=== PATIENT | male | born 1945 | race Caucasian/White ===

== ENCOUNTER 2016-06-22 19:21 | Inpatient (IN) | payer OTHER ==
[~2016-06-22] VITALS: Ht 182.9 cm; Wt 77.4 kg
[~2016-06-22 19:21] MED LIST: DOCU-30 PO; Hydrocodone Bit/Acetaminophen PO
[2016-06-22] MEDS ORDERED: ONDANSETRON 2MG/ML, 2ML ONE (19:59)
[2016-06-22] MEDS ORDERED: HYDROmorphone 1 MG/ML, 1ML ONE (19:59)
[2016-06-22] MEDS ORDERED: ONDANSETRON 2MG/ML, 2ML IVPush ONE (20:00)
[2016-06-22] MEDS ORDERED: SODIUM CHLORIDE FLUSH 10ML SYR IVF ONE (20:00)
[2016-06-22] MEDS ORDERED: HYDROmorphone 1 MG/ML, 1ML IVPush PRN (20:00)
[2016-06-22] MEDS ORDERED: SODIUM CHLORIDE 0.9%, 500ML IVBOLUS ONE (20:30)
[2016-06-22 20:33] LABS: ASPARTATE AMINO TRANSFERASE 31 U/L (15-37); BLOOD UREA NITROGEN 22 mg/dL (7-18)
[2016-06-22] MEDS ORDERED: AMPICILLIN/SULBACTAM 3 GM in SODIUM CHLORIDE 0.9% 100 ML IV ONE (21:30)
[2016-06-22] MEDS ORDERED: VANCOMYCIN PER PHARMACY MC PRN (22:00)
[2016-06-22] MEDS ORDERED: MORPHINE SULFATE 4 MG/ML, 1ML IVPush PRN (22:00)
[2016-06-22] MEDS ORDERED: COLCHICINE 0.6 MG TABLET PO SCH (22:00)
[2016-06-22] MEDS ORDERED: ONDANSETRON ODT 4 MG PO PRN (22:00)
[2016-06-22] MEDS ORDERED: ONDANSETRON 2MG/ML, 2ML IVP PRN (22:00)
[2016-06-22] MEDS ORDERED: PHARMACOKINETIC MONITORING MC PRN (23:00)
[2016-06-22] MEDS ORDERED: VANCOMYCIN 1,500 MG in SODIUM CHLORIDE 0.9% 250 ML IV SCH (23:00)
[2016-06-22] MEDS ORDERED: PHARMACOKINETIC CONSULTATION MC ONE (23:00)
[2016-06-23] MEDS: OXYcodone IR 5MG TABLET PO PRN ×6 (00:11→22:08)
[2016-06-23] MEDS: AMPICILLIN/SULBACTAM 3 GM in SODIUM CHLORIDE 0.9% 100 ML IV SCH ×3 (00:32→11:38)
[2016-06-23] MEDS: LACTATED RINGERS 1,000 ML IV SCH ×3 (00:33→20:50)
[2016-06-23] MEDS: HEPARIN 5,000 UNITS/ML, 1ML SQ SCH ×2 (00:34→06:18)
[2016-06-23 00:39] VITALS: BP 98/65
[2016-06-23 01:48] VITALS: BP 100/68
[2016-06-23 05:33] LABS: BLOOD UREA NITROGEN 21 mg/dL (7-18)
[2016-06-23 07:29] VITALS: BP 110/69
[2016-06-23] MEDS ORDERED: GADOBUTROL 10 MMOL/10 ML PFS ONE (13:06)
[2016-06-23] MEDS: CEFTAROLINE 600 MG in SODIUM CHLORIDE 0.9% 100 ML IV SCH (14:12)
[2016-06-23 14:27] VITALS: BP 110/66
[2016-06-23] MEDS: ENOXAPARIN 40 MG/0.4 ML SQ SCH (15:27)
[2016-06-23 20:00] VITALS: BP 97/62
[2016-06-24] MEDS: CEFTAROLINE 600 MG in SODIUM CHLORIDE 0.9% 100 ML IV SCH ×2 (02:13→15:18)
[2016-06-24 02:43] VITALS: BP 111/69
[2016-06-24] MEDS: LACTATED RINGERS 1,000 ML IV SCH ×3 (04:25→22:04)
[2016-06-24 05:29] LABS: BLOOD UREA NITROGEN 15 mg/dL (7-18)
[2016-06-24 07:30] VITALS: BP 118/72
[2016-06-24] MEDS ORDERED: SODIUM BICARBONATE 4.2%, 5ML ONE (09:03)
[2016-06-24] MEDS ORDERED: LIDOCAINE 1%, 20ML ONE (09:03)
[2016-06-24] MEDS ORDERED: POLYETHYLENE GLYCOL 17 GM PACKET NG ONE (10:30)
[2016-06-24] MEDS: OXYcodone IR 5MG TABLET PO PRN ×3 (10:59→22:03)
[2016-06-24 13:59] VITALS: BP 108/61
[2016-06-24] MEDS: ENOXAPARIN 40 MG/0.4 ML SQ SCH (15:19)
[2016-06-24] MEDS ORDERED: AMPICILLIN/SULBACTAM 3 GM in SODIUM CHLORIDE 0.9% 100 ML IV SCH (15:30)
[2016-06-24] MEDS ORDERED: VANCOMYCIN PER PHARMACY MC PRN (15:30)
[2016-06-24] MEDS ORDERED: PHARMACOKINETIC MONITORING MC PRN (15:30)
[2016-06-24] MEDS: VANCOMYCIN 1,600 MG in SODIUM CHLORIDE 0.9% 250 ML IV SCH (17:56)
[2016-06-24 18:52] VITALS: BP 101/62
[2016-06-24] MEDS: AMPICILLIN/SULBACTAM 3 GM in SODIUM CHLORIDE 0.9% 100 ML IV SCH (19:44)
[2016-06-25 01:14] VITALS: BP 114/68
[2016-06-25] MEDS: AMPICILLIN/SULBACTAM 3 GM in SODIUM CHLORIDE 0.9% 100 ML IV SCH ×4 (01:52→20:40)
[2016-06-25] MEDS: LACTATED RINGERS 1,000 ML IV SCH ×2 (04:42→12:03)
[2016-06-25 07:18] LABS: BLOOD UREA NITROGEN 14 mg/dL (7-18)
[2016-06-25 07:22] LABS: ASPARTATE AMINO TRANSFERASE 33 U/L (15-37)
[2016-06-25 07:44] VITALS: BP 126/71
[2016-06-25] MEDS: OXYcodone IR 5MG TABLET PO PRN (08:14)
[2016-06-25] MEDS: MAGNESIUM HYDROXIDE 8%, 30ML UDC PO SCH (09:09)
[2016-06-25 13:42] VITALS: BP 123/69
[2016-06-25] MEDS: ENOXAPARIN 40 MG/0.4 ML SQ SCH (14:00)
[2016-06-25] MEDS ORDERED: FENTANYL PF 250 MCG/5ML ONE (15:00)
[2016-06-25] MEDS ORDERED: BUPIVACAINE/PF 0.5% ONE (15:05)
[2016-06-25] MEDS ORDERED: PROPOFOL 10 MG/ML, 20ML ONE (15:08)
[2016-06-25] MEDS ORDERED: ONDANSETRON 2MG/ML, 2ML ONE (15:08)
[2016-06-25] MEDS ORDERED: OXYcodone 5 MG/5 ML ORAL.SOL UDC PO PRN (16:00)
[2016-06-25] MEDS ORDERED: METOCLOPRAMIDE 5 MG/ML, 2ML IV PRN (16:00)
[2016-06-25] MEDS ORDERED: ACETAMINOPHEN 325 MG TABLET PO PRN (16:00)
[2016-06-25] MEDS ORDERED: morphine SULFATE 10 MG/ML, 1ML ONE (16:04)
[2016-06-25] MEDS ORDERED: OXYcodone 5 MG/5 ML ORAL.SOL UDC ONE (16:04)
[2016-06-25] MEDS: morphine SULFATE 10 MG/ML, 1ML IV PRN ×2 (16:09→16:16)
[2016-06-25] MEDS ORDERED: FENTANYL PF 100 MCG/2ML ONE (16:25)
[2016-06-25] MEDS: FENTANYL PF 100 MCG/2ML IV PRN ×2 (16:25→16:30)
[2016-06-25] MEDS: VANCOMYCIN 1,600 MG in SODIUM CHLORIDE 0.9% 250 ML IV SCH (17:16)
[2016-06-25 19:14] VITALS: BP 112/61
[2016-06-25] MEDS: KETOROLAC 30 MG/1 ML IVPush PRN (22:47)
[2016-06-26 01:39] VITALS: BP 105/52
[2016-06-26] MEDS: AMPICILLIN/SULBACTAM 3 GM in SODIUM CHLORIDE 0.9% 100 ML IV SCH ×4 (02:58→21:50)
[2016-06-26] MEDS: LACTATED RINGERS 1,000 ML IV SCH ×4 (02:58→23:10)
[2016-06-26 05:14] LABS: BLOOD UREA NITROGEN 14 mg/dL (7-18)
[2016-06-26 05:17] LABS: ASPARTATE AMINO TRANSFERASE 50 U/L (15-37)
[2016-06-26 07:11] VITALS: BP 118/66
[2016-06-26] MEDS: MAGNESIUM HYDROXIDE 8%, 30ML UDC PO SCH (09:40)
[2016-06-26 15:32] VITALS: BP 115/54
[2016-06-26] MEDS: ENOXAPARIN 40 MG/0.4 ML SQ SCH (15:41)
[2016-06-26 20:25] VITALS: BP 127/61
[2016-06-26] MEDS: KETOROLAC 30 MG/1 ML IVPush PRN (23:10)
[2016-06-27 01:03] VITALS: BP 127/74
[2016-06-27] MEDS: AMPICILLIN/SULBACTAM 3 GM in SODIUM CHLORIDE 0.9% 100 ML IV SCH ×2 (03:44→09:30)
[2016-06-27 05:30] LABS: BLOOD UREA NITROGEN 18 mg/dL (7-18)
[2016-06-27 05:33] LABS: ASPARTATE AMINO TRANSFERASE 60 U/L (15-37)
[2016-06-27] MEDS: LACTATED RINGERS 1,000 ML IV SCH ×2 (06:10→11:50)
[2016-06-27 06:40] VITALS: BP 153/70
[2016-06-27] MEDS: MAGNESIUM HYDROXIDE 8%, 30ML UDC PO SCH ×2 (09:00→11:49)
[2016-06-27] MEDS: KETOROLAC 30 MG/1 ML IVPush PRN ×2 (11:45→23:00)
[2016-06-27] MEDS: CEFTRIAXONE PMX 2GM/50ML 50 ML IV SCH (12:00)
[2016-06-27 13:55] VITALS: BP 123/67
[2016-06-27] MEDS: ENOXAPARIN 40 MG/0.4 ML SQ SCH (14:00)
[2016-06-27] MEDS: OXYcodone IR 5MG TABLET PO PRN (17:26)
[2016-06-27 18:59] VITALS: BP 107/68
[2016-06-28] MEDS: LACTATED RINGERS 1,000 ML IV SCH ×3 (00:51→21:40)
[2016-06-28 01:55] VITALS: BP 134/71
[2016-06-28 05:39] LABS: ASPARTATE AMINO TRANSFERASE 42 U/L (15-37); BLOOD UREA NITROGEN 16 mg/dL (7-18)
[2016-06-28 06:50] VITALS: BP 138/72
[2016-06-28] MEDS ORDERED: COLCHICINE 0.6 MG TABLET PO ONE (07:30)
[2016-06-28] MEDS: MAGNESIUM HYDROXIDE 8%, 30ML UDC PO SCH (09:00)
[2016-06-28] MEDS: KETOROLAC 30 MG/1 ML IVPush PRN ×2 (11:37→20:40)
[2016-06-28] MEDS: CEFTRIAXONE PMX 2GM/50ML 50 ML IV SCH (11:52)
[2016-06-28 13:15] VITALS: BP 127/68
[2016-06-28] MEDS: ENOXAPARIN 40 MG/0.4 ML SQ SCH (14:00)
[2016-06-28] MEDS: OXYcodone IR 5MG TABLET PO PRN ×2 (14:21→22:29)
[2016-06-28] MEDS ORDERED: ONDANSETRON 2MG/ML, 2ML IVPush PRN (14:30)
[2016-06-28 18:31] VITALS: BP 119/81
[2016-06-29 04:26] VITALS: BP 145/74
[2016-06-29] MEDS: KETOROLAC 30 MG/1 ML IVPush PRN ×2 (04:45→20:27)
[2016-06-29 05:14] LABS: ASPARTATE AMINO TRANSFERASE 40 U/L (15-37); BLOOD UREA NITROGEN 14 mg/dL (7-18)
[2016-06-29] MEDS: OXYcodone IR 5MG TABLET PO PRN ×4 (06:02→22:47)
[2016-06-29] MEDS: LACTATED RINGERS 1,000 ML IV SCH ×2 (06:03→17:01)
[2016-06-29 07:25] VITALS: BP 99/65
[2016-06-29] MEDS: MAGNESIUM HYDROXIDE 8%, 30ML UDC PO SCH (08:20)
[2016-06-29] MEDS: CEFTRIAXONE PMX 2GM/50ML 50 ML IV SCH (11:50)
[2016-06-29 12:34] VITALS: BP 91/52
[2016-06-29] MEDS: ENOXAPARIN 40 MG/0.4 ML SQ SCH (15:01)
[2016-06-29 20:13] VITALS: BP 120/68
[2016-06-30 02:19] VITALS: BP 99/57
[2016-06-30] MEDS: LACTATED RINGERS 1,000 ML IV SCH ×3 (03:14→22:19)
[2016-06-30 03:48] LABS: ASPARTATE AMINO TRANSFERASE 23 U/L (15-37); BLOOD UREA NITROGEN 16 mg/dL (7-18)
[2016-06-30 07:19] VITALS: BP 107/68
[2016-06-30] MEDS: KETOROLAC 30 MG/1 ML IVPush PRN ×2 (08:33→22:14)
[2016-06-30] MEDS: MAGNESIUM HYDROXIDE 8%, 30ML UDC PO SCH (09:31)
[2016-06-30] MEDS: ENOXAPARIN 40 MG/0.4 ML SQ SCH (13:01)
[2016-06-30] MEDS: CEFTRIAXONE PMX 2GM/50ML 50 ML IV SCH (13:02)
[2016-06-30 14:43] VITALS: BP 104/67
[2016-06-30 19:41] VITALS: BP 94/58
[2016-07-01 02:47] VITALS: BP 101/74
[2016-07-01] MEDS: OXYcodone IR 5MG TABLET PO PRN ×2 (04:55→22:02)
[2016-07-01 06:12] LABS: ASPARTATE AMINO TRANSFERASE 18 U/L (15-37); BLOOD UREA NITROGEN 17 mg/dL (7-18)
[2016-07-01 07:22] VITALS: BP 105/69
[2016-07-01] MEDS: MAGNESIUM HYDROXIDE 8%, 30ML UDC PO SCH (07:50)
[2016-07-01] MEDS: LACTATED RINGERS 1,000 ML IV SCH ×2 (09:40→20:55)
[2016-07-01] MEDS: CEFTRIAXONE PMX 2GM/50ML 50 ML IV SCH (12:05)
[2016-07-01 13:11] VITALS: BP 101/63
[2016-07-01] MEDS: ACETAMINOPHEN 325 MG TABLET PO PRN ×2 (14:06→15:55)
[2016-07-01] MEDS: ENOXAPARIN 40 MG/0.4 ML SQ SCH (14:06)
[2016-07-01 19:58] VITALS: BP 115/68
[2016-07-02 02:05] VITALS: BP 99/64
[2016-07-02] MEDS: OXYcodone IR 5MG TABLET PO PRN ×2 (03:53→11:53)
[2016-07-02 04:53] LABS: ASPARTATE AMINO TRANSFERASE 22 U/L (15-37); BLOOD UREA NITROGEN 12 mg/dL (7-18)
[2016-07-02] MEDS: LACTATED RINGERS 1,000 ML IV SCH ×2 (05:35→16:00)
[2016-07-02 06:59] VITALS: BP 108/70
[2016-07-02] MEDS: MAGNESIUM HYDROXIDE 8%, 30ML UDC PO SCH (09:00)
[2016-07-02] MEDS: CEFTRIAXONE PMX 2GM/50ML 50 ML IV SCH (11:53)
[2016-07-02 12:47] VITALS: BP 93/64
[2016-07-02] MEDS: ENOXAPARIN 40 MG/0.4 ML SQ SCH (14:00)
[2016-07-02] MEDS ORDERED: MAGN400O4 PO (16:51)
[2016-07-02] MEDS ORDERED: OXYC5CAP4 PO (17:39)
== END 2016-07-02 18:50 | disposition home or self-care (01) | DRG 853 ==
LOC: ED 21:09 → EDIP 21:15 → 3NE 22:41
PROVIDERS: ADMIT Internal Medicine; ATTEND Internal Medicine
PROC: 0S9G3ZX Drainage of Left Ankle Joint, Percutaneous Approach, Diagnostic (ICD-10-PCS; principal; 2016-06-24)
PROC: 0SBG0ZZ Excision of Left Ankle Joint, Open Approach (ICD-10-PCS; 2016-06-25)
PROC: 0LBW0ZZ Excision of Left Foot Tendon, Open Approach (ICD-10-PCS; 2016-06-25)
PROC: 02HV33Z Insertion of Infusion Device into Superior Vena Cava, Percutaneous Approach (ICD-10-PCS; 2016-06-27)
PROC: B5181ZA Fluoroscopy of Superior Vena Cava using Low Osmolar Contrast, Guidance (ICD-10-PCS; 2016-06-27)
PROC: B548ZZA Ultrasonography of Superior Vena Cava, Guidance (ICD-10-PCS; 2016-06-27)
DX: A41.9 Sepsis, unspecified organism (principal); E43 Unspecified severe protein-calorie malnutrition; L03.116 Cellulitis of left lower limb; M00.272 Other streptococcal arthritis, left ankle and foot; M00.9 Pyogenic arthritis, unspecified; B95.4 Other streptococcus as the cause of diseases classified elsewhere; D64.9 Anemia, unspecified; D47.3 Essential (hemorrhagic) thrombocythemia; F17.290 Nicotine dependence, other tobacco product, uncomplicated; G62.9 Polyneuropathy, unspecified; K59.00 Constipation, unspecified; M10.9 Gout, unspecified; M19.90 Unspecified osteoarthritis, unspecified site; M67.479 Ganglion, unspecified ankle and foot; M72.2 Plantar fascial fibromatosis; Z85.72 Personal history of non-Hodgkin lymphomas; Z68.23 Body mass index [BMI] 23.0-23.9, adult; Z90.49 Acquired absence of other specified parts of digestive tract
CPT/HCPCS: 20606; 36415; 36569; 71010; 76937; 77001; 80048; 80053; 82040; 83605; 83735; 84145; 84550; 85025; 85651; 86140; 87015; 87040; 87070; 87075; 87102; 87116; 87147; 87176; 87181; 87205; 87206; 88304; 88341; 88342; 89050; 96361; 96365; 96375; A9585; J0295; J0696; J0712; J1170; J1644; J1650; J1885; J2405; J2704; J3010; J3370; J3490; C1751; G0461; J2270; J7040; J7050; J7120; J7512

== ENCOUNTER → 2016-07-11 | Outpatient (CLI) | payer OTHER ==
[~2016-07-11] MED LIST changes: +MAGN400O4 PO; +OXYC5CAP4 PO
== END | disposition home or self-care (01) ==
LOC: WOUND 12:42
PROVIDERS: ATTEND Podiatrist Foot & Ankle Surgery
DX: T81.89XD Other complications of procedures, not elsewhere classified, subsequent encounter (principal); M00.9 Pyogenic arthritis, unspecified; M79.605 Pain in left leg; F17.210 Nicotine dependence, cigarettes, uncomplicated; M10.9 Gout, unspecified; B95.5 Unspecified streptococcus as the cause of diseases classified elsewhere; M19.90 Unspecified osteoarthritis, unspecified site; Z48.817 Encounter for surgical aftercare following surgery on the skin and subcutaneous tissue; Z68.23 Body mass index [BMI] 23.0-23.9, adult; Y83.8 Other surgical procedures as the cause of abnormal reaction of the patient, or of later complication, without mention of misadventure at the time of the procedure
CPT/HCPCS: G0463; WOU0463

== ENCOUNTER → 2016-07-18 | Outpatient (CLI) | payer OTHER | END | disposition home or self-care (01) | LOC: WOUND 11:06 | PROVIDERS: ATTEND Podiatrist Foot & Ankle Surgery | DX: T81.89XD Other complications of procedures, not elsewhere classified, subsequent encounter (principal); M00.9 Pyogenic arthritis, unspecified; E43 Unspecified severe protein-calorie malnutrition; M79.605 Pain in left leg; F17.210 Nicotine dependence, cigarettes, uncomplicated; Y83.8 Other surgical procedures as the cause of abnormal reaction of the patient, or of later complication, without mention of misadventure at the time of the procedure | CPT/HCPCS: G0463; WOU0463 ==